=== PATIENT | female | born 1990 | race Two or more races ===

== ENCOUNTER 2016-06-21 20:32 | Emergency (ER) | payer OTHER ==
[~2016-06-21] VITALS: Ht 162.6 cm; Wt 88.0 kg
[~2016-06-21 20:32] MED LIST: FERR325T58 PO
[2016-06-21 21:30] VITALS: BP 110/70
--- NOTE | 2016-06-21 23:13 | PHYS DOC ---
Past Medical History Past Medical History: Anemia Past Surgical History: Tonsillectomy, Other Additional Past Surgical Histo: ortho on ankle, tubes on ears X 2 Alcohol Use: Occasionally Drug Use: None Adult General Chief Complaint Chief Complaint: left arm pain HPI HPI Patient is a 26 year old female who complains of pain in the left upper arm and left chest off and on for 3 days now. She is 5 weeks with her fourth . She's never had pain like this before. The pain bothered her all day on Wednesday but then went away Wednesday evening and she slept fine Wednesday night. She didn't have the pain on Wednesday. The pain came back today and has bothered her all day. It's a sharp pain that starts just below her left shoulder and goes down to about her left elbow. It's been constant today. She at times also has a sharp pain from approximately the epigastrium up into the mid chest and over to the left shoulder. These 2 pains seem like the same pain to her. She feels short of breath when the pain is bad but doesn't feel short of breath when the pain is not bad. Denies fever or chills. For some reason, she was charted in as "fever" but the patient denies any fever at all and her triage temperature was normal. Patient denies cough. Denies history of blood clot. She is in good general health. She does have a history of "IBS" and sometimes has constipation. She does take laxatives on occasion. Review of Systems Review of Systems Constitutional: Denies fever or chills [] Eyes: Denies change in visual acuity, redness, or eye pain [] HENT: Denies nasal congestion or sore throat [] Respiratory: Denies cough or shortness of breath [] Cardiovascular: As in history of present illness GI: Denies abdominal pain, nausea, vomiting, bloody stools or diarrhea [] : First trimester Musculoskeletal: Denies back pain or joint pain [] Integument: Denies rash or skin lesions [] Neurologic: Denies headache, focal weakness or sensory changes [] Allergies Allergies Allergies Coded Allergies Type Severity Reaction Last Updated Verified No Known Drug Allergies 04/01/14 No Physical Exam Physical Exam Constitutional: Well developed, well nourished, no acute distress, non-toxic appearance. Alert, mentating normally, pulse ox on room air 99%, vital signs normal. HENT: Normocephalic, atraumatic, bilateral external ears normal, nose normal. [ ] Eyes: conjunctiva normal, no discharge. [] Neck: Normal range of motion, no stridor. [] Cardiovascular:Heart rate regular rhythm, no murmur [] Lungs & Thorax: Bilateral breath sounds clear to auscultation [] Abdomen: Bowel sounds normal, soft, no tenderness, no masses, no pulsatile masses. Abdomen entirely benign. Skin: Warm, dry, no erythema, no rash. [] Extremities: No tenderness, no cyanosis, no clubbing, ROM intact, no edema. Left arm is nontender, with no deformity, no skin abnormalities or skin color changes, full range of motion without pain or difficulty. Neurologic: Alert and oriented X 3, normal motor function, normal sensory function, no focal deficits noted. [] Current Patient Data Vital Signs Vital Signs Date Time Temp Pulse Resp B/P Pulse Ox O2 Delivery O2 Flow Rate FiO2 06/21/16 21:30 98.1 101 16 110/70 97 Room Air 98.1 EKG EKG 12-lead EKG read by me. Heart rate 88. Sinus rhythm. There are no acute ST or T wave changes indicative of ischemia or infarction. No STEMI. [id number][] Radiology/Procedures Radiology/Procedures Two-view chest x-ray, shielded, read by me. No acute cardiopulmonary findings. There is a large amount of colon gas in the splenic flexure under the left hemidiaphragm. [] Course & Med Decision Making Course & Med Decision Making Pertinent Labs and Imaging studies reviewed. (See chart for details) 26-year-old female who is comes in with left sided chest pain and left arm pain intermittently for 3 days without known cause. It does not sound cardiac. She is not short of air except for when the pain is bad. The pain sounds somewhat pleuritic in nature. Her pulse ox on room air is 99% and she is not tachycardic. I have a low index of suspicion for PE. Chest x-ray shows gas in the splenic flexure of the colon. I suspect her pain is from gas in the colon under her left hemidiaphragm. I discussed this with the patient. We'll try a dose of laxative to see if this will help her symptoms which I feel are benign in nature. She is agreeable to that plan. [] Israon Disclaimer Dragon Disclaimer This electronic medical record was generated, in whole or in part, using a voice recognition dictation system. Departure Departure Impression: Primary Impression: Left arm pain Additional Impression: Gassy chest pain Disposition: HOME, SELF-CARE Condition: STABLE Referrals: UNKNOWN PCP NAME (PCP) Additional Instructions: Today, chest x-ray shows gas in your large intestine (colon) which can cause pain up into the chest and left shoulder. I recommend that you take one dose of laxative at bedtime tonight, and if you have not had good "results" by tomorrow morning, take a second dose tomorrow morning. If your pain continues to bother you after you have had good results with a bowel movement and passing gas, see your primary care doctor or return to ED. Problem Qualifiers ROBERT ISLAS MD Jun 21, 2016 23:13
--- NOTE | 2016-06-22 06:32 | EKG ---
[facility] [address] [place] [address] Test Date: 2016-06-21 Test Time: 22:16:10 Pat Name: MARIBEL MARK Department: Room: Gender: F [employer]: : 1990 Requested By: ROBERT ISLAS Order Number: [id number] Reading MD: Measurements Intervals [place] Rate: 88 P: 60 LA: 196 QRS: 27 QRSD: 78 T: 28 QT: 332 QTc: 405 Interpretive Statements SINUS RHYTHM NO SPECIFIC ECG ABNORMALITIES RI6.01 No previous ECG available for comparison
--- NOTE | 2016-06-22 08:16 | RAD ---
Chest, 2 views, 06/21/2016: History: Left arm and chest pain The heart size and pulmonary vascularity are normal. No pulmonary infiltrates are seen. There is no evidence of pleural fluid. IMPRESSION: No acute cardiopulmonary abnormality is detected.
== END 2016-06-21 23:27 | disposition home or self-care (01) ==
LOC: ER 20:32
DX: O26.891 Other specified pregnancy related conditions, first trimester (principal); M79.622 Pain in left upper arm; R07.9 Chest pain, unspecified; O99.511 Diseases of the respiratory system complicating pregnancy, first trimester; R06.02 Shortness of breath; Z3A.01 Less than 8 weeks gestation of pregnancy
CPT/HCPCS: 71020; 93005; 99284-25

== ENCOUNTER 2016-08-27 23:58 | Emergency (ER) | payer OTHER ==
[~2016-08-27] VITALS: Ht 162.6 cm; Wt 85.7 kg
[2016-08-28 00:18] LABS: BILIRUBIN,URINE NEGATIVE (NEG); GLUCOSE,URINE NEGATIVE (NEG); NITRITE,URINE NEGATIVE (NEG); PH,URINE 6.5; PROTEIN,URINE NEGATIVE (NEG-TRACE)
[2016-08-28 00:23] VITALS: BP 99/56
[2016-08-28 00:23] LABS: BACTERIA,URINE FEW /HPF (0-FEW); RBC,URINE 0 /HPF (0-2); SQUAMOUS EPITHELIAL CELL,UR MOD /LPF
--- NOTE | 2016-08-28 00:36 | PHYS DOC ---
Past Medical History Past Medical History: Anemia Past Surgical History: Tonsillectomy, Other Additional Past Surgical Histo: L ANKLE, R HAND tubes on ears X 2 Alcohol Use: Occasionally Drug Use: None Adult General Chief Complaint Chief Complaint: ABDOMINAL PAIN IN HPI HPI Patient is a 26 year old female approximately 13 weeks who presents with crampy lower abdominal pain to suprapubic area that began after a slip and fall. She landed on her buttock from standing position. She slipped on water. She denies vaginal bleeding or discharge, dysuria, hematuria, back pain, fever or chills, nausea or vomiting. She took no medications prior to arrival. No other injury. Review of Systems Review of Systems Constitutional: Denies fever or chills [] Eyes: Denies change in visual acuity, redness, or eye pain [] HENT: Denies nasal congestion or sore throat [] Respiratory: Denies cough or shortness of breath [] Cardiovascular: No additional information not addressed in HPI [] GI: Denies nausea, vomiting, bloody stools or diarrhea [] : Denies dysuria or hematuria [] Musculoskeletal: Denies back pain or joint pain [] Integument: Denies rash or skin lesions [] Neurologic: Denies headache, focal weakness or sensory changes [] Endocrine: Denies polyuria or polydipsia [] Allergies Allergies Allergies Coded Allergies Type Severity Reaction Last Updated Verified No Known Drug Allergies 04/01/14 No Physical Exam Physical Exam Constitutional: Well developed, well nourished, no acute distress, non-toxic appearance. [] HENT: Normocephalic, atraumatic, bilateral external ears normal, oropharynx moist, nose normal. [] Eyes: PERRLA, EOMI. [] Neck: Normal range of motion, supple. [] Cardiovascular:Heart rate regular rhythm [] Lungs & Thorax: Bilateral breath sounds clear to auscultation [] Abdomen: Bowel sounds normal, soft, no tenderness. Gravid below umbilicus. [] Skin: Warm, dry, no erythema, no rash. [] Back: No tenderness, no CVA tenderness. [] Extremities: No tenderness, ROM intact, no edema. [] Neurologic: Alert and oriented X 3, normal motor function, normal sensory function, no focal deficits noted. [] Psychologic: Affect normal, judgement normal, mood normal. [] Current Patient Data Vital Signs Vital Signs Date Time Temp Pulse Resp B/P (MAP) Pulse Ox O2 Delivery O2 Flow Rate FiO2 08/28/16 00:23 98.1 90 20 99/56 (70) 94 Room Air 98.1 Lab Values Laboratory Tests Test 08/27/16 23:18 08/28/16 00:13 POC Urine HCG, Qualitative Hcg positive (Negative) Urine Collection Type Unknown Urine Color Yellow Urine Clarity Cloudy Urine pH 6.5 Urine Specific [place] 1.025 Urine Protein Negative mg/dL (NEG-TRACE) Urine Glucose (UA) Negative mg/dL (NEG) Urine Ketones (Stick) Trace mg/dL (NEG) Urine Blood Negative (NEG) Urine Nitrite Negative (NEG) Urine Bilirubin Negative (NEG) Urine Urobilinogen Dipstick 1.0 mg/dL (0.2 mg/dL) Urine Leukocyte Esterase Small (NEG) Urine RBC 0 /HPF (0-2) Urine WBC 5-10 /HPF (0-4) Urine Squamous Epithelial Cells Mod /LPF Urine Bacteria Few /HPF (0-FEW) Urine Mucus Mod /LPF Course & Med Decision Making Course & Med Decision Making Bedside transabdominal OB ultrasound as performed and interpreted by me showing single IUP, positive movement, heart rate 145. Discussed symptomatic care and to follow-up with her OB doctor. Return precautions given. She understands and agrees with plan. Dragon Disclaimer Dragon Disclaimer This electronic medical record was generated, in whole or in part, using a voice recognition dictation system. Departure Departure Impression: Primary Impression: Abdominal pain during in second trimester Disposition: 01 HOME, SELF-CARE Condition: STABLE Referrals: UNKNOWN PCP NAME (PCP) Patient Instructions: Abdominal Pain During , [id number] Additional Instructions: Take Tylenol as needed for pain. Follow-up with your OB doctor. Return for any concerns. Min MURRAY MD August 28, 2016 00:36
== END 2016-08-28 00:50 | disposition home or self-care (01) ==
LOC: ER 23:58
DX: O26.891 Other specified pregnancy related conditions, first trimester (principal); R10.30 Lower abdominal pain, unspecified; Z3A.13 13 weeks gestation of pregnancy; Z86.2 Personal history of diseases of the blood and blood-forming organs and certain disorders involving the immune mechanism
CPT/HCPCS: 81001; 81025; 84703; 87086; 99284